=== PATIENT | male | born 1970 | race Caucasian/White ===

== ENCOUNTER 2019-08-05 11:49 | Emergency (ER) | payer OTHER, SELFPAY ==
[2019-08-05 12:04] VITALS: BP 125/68; PULSE 87; RESP 16; TEMP 36.9; O2SAT 98
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
[2019-08-05] MEDS: KETOROLAC (*BKC) 60 MG/2 ML VIAL IM (12:16)
[2019-08-05] MEDS: TETANUS,DIPHTHERIA,AC PERTUSSIS ADULT 0.5 ML (ADACEL) IM (12:21)
[2019-08-05 12:23] VITALS: RESP 17
== END 2019-08-05 12:23 | disposition home or self-care (01) ==
PROVIDERS: Emergency Provider Emergency Medicine
DX: T21.02XA Burn of unspecified degree of abdominal wall, initial encounter (principal); X10.2XXA Contact with fats and cooking oils, initial encounter
CPT/HCPCS: 16020; 90471; 90715; 96372; 99283; A9270; J1885

== ENCOUNTER 2019-09-24 14:32 | Emergency (ER) | payer OTHER, SELFPAY ==
--- NOTE | ~2019-09-24 | XR_ITS ---
EXAMINATION: XR chest 2V DATE: 09/24/2019 15:10 INDICATION: Cough TECHNIQUE: PA and lateral views of the chest are obtained. COMPARISON: 06/12/2019 FINDINGS: The lungs are free of acute opacities. There is no pleural effusion or pneumothorax. The ca rdiomediastinal silhouette is normal. The visualized bones and soft tissues are unremarkable. IMPRESSION: 1. No acute cardiopulmonary abnormality. Reviewed, dictated and finalized at location A.
[2019-09-24 14:40] VITALS: BP 146/80; PULSE 90; RESP 20; TEMP 36.7; O2SAT 99
--- NOTE | 2019-09-24 14:46 | ED.URI ---
HPI - URI/Sore Throat General Chief Complaint: Upper Respiratory Infection Stated Complaint: flu like symptoms Source: patient Mode of arrival: ambulatory Limitations: no limitations History of Present Illness HPI Narrative: 48 y.o. with asthma c/o cough, tactile fever and sore throat x 3 days. Recently he has been occasionally coughing up yellow phlegm. C/o burning in chest since onset of symptoms. Denies hx of heartburn. States he was on steroid several months ago. He has a nebulizer at home but does not have the hose. Related Data Home Medications Medication Instructions Recorded Confirmed albuterol sulfate 2 puff INHALATION PRN PRN 06/01/19 09/24/19 Allergies Allergy/AdvReac Type Severity Reaction Status Date / Time Penicillins Allergy Hives Verified 06/01/19 12:19 Review of Systems Constitutional: Constitutional: Reports no additional constitutional complaints Cardiovascular: Cardiovascular: Reports no additional cardiovascular complaints Respiratory: Respiratory: Reports no additional respiratory complaints Gastrointestinal: Comments: denies hx of acidic taste in his mouth or previous problems with heartburn Integumentary/Breasts: Skin/Breast: Denies rash PMFSH Past Medical History Medical History Asthma No active medical problems Surgical History Surgical History H/O colonoscopy History of esophagogastroduodenoscopy (EGD) Family History Family History Father , CHF No problems noted. Mother Cerebrovascular accident Social History Social History Smoking packs per day: 1 Smoking cigarettes per day: 20.0 Years smoked: 30 Smoking pack-years: 30.00 Smoking status: Current every day smoker Tobacco type: cigarettes and e-cigarettes Substance use: former Substance use type: amphetamines Gender identity (if verbalized by the patient): Male Exam Const: General: cooperative and alert Nutritional Appearance: average body habitus Limitations: no limitations HENMT: Face and sinus: sinuses nontender Mouth: Yes moist mucous membranes Throat: posterior oropharynx normal Neck: Neck: no lymphadenopathy Chest: Chest palpation & inspection: normal inspection of the chest Resp: Effort & Inspection: normal respiratory effort Auscultation: crackles (left base ) and wheezes inspiratory wheezes and throughout Cardio: Rate: regular rate Rhythm: regular rhythm Heart sounds: no murmurs Course Course Emergency Course: Improvement of dyspnea after duoneb treatment. Vital Signs Vital signs: Vital Signs Temperature 36.7 C 09/24/19 14:40 Pulse Rate 90 09/24/19 14:40 Respiratory Rate 20 09/24/19 14:40 Blood Pressure 146/80 H 09/24/19 14:40 Pulse Oximetry 99 09/24/19 14:40 Temperature 36.7 C 09/24/19 14:40 Pulse Rate 90 09/24/19 15:34 Respiratory Rate 20 09/24/19 15:34 Blood Pressure 146/80 H 09/24/19 14:40 Pulse Oximetry 99 09/24/19 14:40 MDM - URI/Sore Throat Differential Diagnosis Differential diagnosis: Likely upper respiratory infection, bronchitis and other (pneumonia) Medical Records Attestation: I reviewed the patient's medical records. Medical records narrative: Dx. with bronchitis 3 months ago. Steroids not used. Lab Data Attestation: I reviewed the patient's lab results. Lab results narrative: Negative Strep A, Influenza A and B. Labs: Lab Results 09/24/19 Range/Units 14:46 Influenza Type A Ag Negative (Negative) Influenza Type B Ag Negative (Negative) Grp A Beta Strep Ag Negative Imaging Data My impression: No acute abnormalities Radiologist's impression: IMPRESSION: 1. No acute cardiopulmonary abnormality. Discharge Plan Discharge Clinical Impression: Bronchitis URI (
[2019-09-24 15:13] LABS: Influenza Control Valid (Valid)
[2019-09-24] MEDS: predniSONE 20 MG TABLET 60 MG PO (15:16)
[2019-09-24] MEDS: IPRATROPIUM 0.5 MG/ALBUTEROL SULFATE 2.5 MG AMPUL.NEB 3 ML INHALATION (15:18)
[2019-09-24 15:22] VITALS: PULSE 90; RESP 20
[2019-09-24 15:34] VITALS: PULSE 90; RESP 20
[2019-09-24 15:45] VITALS: BP 126/82; PULSE 86; RESP 20; O2SAT 99
== END 2019-09-24 15:46 | disposition home or self-care (01) ==
PROVIDERS: Emergency Provider Family Medicine
DX: J40 Bronchitis, not specified as acute or chronic (principal); J06.9 Acute upper respiratory infection, unspecified; F17.210 Nicotine dependence, cigarettes, uncomplicated
CPT/HCPCS: 71046; 87081; 87804; 87880; 94640; 99283; A9270; J7512

== ENCOUNTER 2020-01-09 18:42 | Emergency (ER) | payer OTHER, SELFPAY ==
--- NOTE | 2020-01-09 18:55 | ED.BACK ---
HPI - Back Pain/Injury General Chief Complaint: Back Pain/Injury Stated Complaint: back pain Time Seen by Provider: 01/09/20 18:55 Source: patient and RN notes reviewed Mode of arrival: ambulatory Limitations: no limitations History of Present Illness MD elicited complaint: back pain and other Pertinent past history: prior back pain Onset (ago): day(s) (4-5 days ) Severity: moderate Pain scale (0-10): 10 Quality: dull Location: lumbar spine and sacrum Radiation: none Exacerbating factors: movement Relieving factors: none Context: while lifting and bending Associated symptoms: denies other symptoms and increased urinary frequency Treatments prior to arrival: NSAIDS Work related injury: No Related Data Home Medications Medication Instructions Recorded Confirmed albuterol sulfate 2 puff INHALATION PRN PRN 06/01/19 01/09/20 Allergies Allergy/AdvReac Type Severity Reaction Status Date / Time Penicillins Allergy Hives Verified 06/01/19 12:19 Review of Systems Review of Systems: All systems reviewed & are unremarkable except as noted in HPI and below Constitutional: Constitutional: Reports as per HPI and Reports no additional constitutional complaints Cardiovascular: Cardiovascular: Reports as per HPI and Reports no additional cardiovascular complaints Respiratory: Respiratory: Reports as per HPI and Reports no additional respiratory complaints Gastrointestinal: Gastrointestinal: Reports as per HPI and Reports no additional gastrointestinal complaints Genitourinary: Genitourinary: Reports no additional male genitourinary complaints and Denies urinary incontinence Musculoskeletal: Musculoskeletal: Reports no additional musculoskeletal complaints Integumentary/Breasts: Skin/Breast: Reports system reviewed and no additional complaints, except as docu Neurologic: Reports system reviewed and no additional complaints, except as documented Psychiatric: Psychiatric: Reports no additional psychiatric complaints Endocrine: Endocrine: Reports no additional endocrine complaints Hematologic/Lymphatic: Hematologic/Lymphatic: Reports no additional hematologic/lymphatic complaints Allergic/Immunologic: Allergic/Immunologic: Reports no additional allergic/immunologic complaints PMFSH Past Medical History Medical History (Updated 01/09/20 @ 19:25 by Kristina Hernandez MD) Asthma No active medical problems No acute medical problems Surgical History Surgical History (Updated 01/09/20 @ 19:05 by Kristina Hernandez MD) H/O colonoscopy History of esophagogastroduodenoscopy (EGD) No significant past surgical history Social History Social History Smoking packs per day: 1 Smoking cigarettes per day: 20.0 Years smoked: 30 Smoking pack-years: 30.00 Smoking status: Current every day smoker Tobacco type: cigarettes and e-cigarettes/vaping Substance use: former Substance use type: amphetamines Gender identity (if verbalized by the patient): Male Exam Const: General: healthy appearing, no acute distress and alert; No ill appearing Nutritional Appearance: well nourished and obese Orientation/consciousness: patient oriented x3 Limitations: No no limitations and No physical limitations HENMT: Head: normal to inspection Eyes: Conjunctivae: conjunctivae normal Pupils: Equal, round and reactive pupils present EOM: EOMs intact bilaterally Neck: Neck: normal visual inspection Chest: Chest palpation & inspection: normal inspection of the chest Resp: Effort & Inspection: normal respiratory effort, no retractions and no use of accessory muscles Auscultation: clear to auscultation bilaterally Cardio: Rate: regular rate Rhythm: regular rhythm GI: Auscultation: normal bowel sounds Other: Soft and nontender : Other: Deferred Back/Spine/Pelvis: Back: no CVA tenderness Skin: General skin exam: normal color Rashes: no rashes Neuro: General: patient
[2020-01-09 19:05] VITALS: BP 145/84; PULSE 90; RESP 14; TEMP 36.7; O2SAT 97
[2020-01-09] MEDS: KETOROLAC (*BKC) 60 MG/2 ML VIAL IM (19:10)
[2020-01-09 19:13] LABS: Add Urine Microscopic? NO; Appearance Urine Clear (Clear); Bilirubin Urine Negative (Negative); Blood Urine Negative (Negative); Color Urine Yellow (Yellow); Glucose Urine UA Negative (Negative); Ketones Urine Negative (Negative); Leukocyte Esterase Ur Negative (Negative); Nitrate Urine Negative (Negative); Protein Urine Negative (Negative); Specific Grav Ur 1.025 (1.010-1.020); Urobilinogen Urine 0.2 mg/dL (0.2-1.0)
[2020-01-09 19:25] VITALS: BP 123/75; PULSE 90; RESP 16
== END 2020-01-09 19:33 | disposition home or self-care (01) ==
PROVIDERS: Emergency Provider Emergency Medicine
DX: S39.012A Strain of muscle, fascia and tendon of lower back, initial encounter (principal); X50.9XXA Other and unspecified overexertion or strenuous movements or postures, initial encounter
CPT/HCPCS: 81003; 96372; 99283; J1885

== ENCOUNTER 2020-02-19 20:29 | Emergency (ER) | payer OTHER, SELFPAY ==
--- NOTE | ~2020-02-19 | XR_ITS ---
EXAMINATION: XR chest 2V EXAM DATE: 02/19/2020 21:14 INDICATION: Shortness of breath and cough. TECHNIQUE: Frontal and lateral projections of the chest obtained and reviewed. Comparison is made to prior examination from 09/24/2019. FINDINGS: The lungs are clear. There are no pleural effusions. The cardiomediastinal silhouette is within normal limits. There is no pneumothorax suspected. The bones and soft tissues are unremarkab le. IMPRESSION: No acute cardiopulmonary findings. Reviewed, dictated and finalized at location A.
[2020-02-19 20:38] VITALS: BP 139/82; PULSE 91; RESP 18; TEMP 36.4; O2SAT 97
[2020-02-19] MEDS: methylPREDNISolone ACETATE 40 MG/ML VIAL 80 MG IM (20:49)
[2020-02-19] MEDS: IPRATROPIUM 0.5 MG/ALBUTEROL SULFATE 2.5 MG AMPUL.NEB 3 ML INHALATION (20:55)
[2020-02-19 20:56] VITALS: PULSE 87; RESP 16
[2020-02-19 20:56] LABS: Hematocrit 38.3 % (40.0-54.0); Hemoglobin 13.2 g/dL (14.0-18.0); Mean Corpuscular HGB Conc 34.5 g/dL (32.0-36.0); Mean Corpuscular Hemoglobin 32.2 pg (27.0-31.0); Mean Corpuscular Volume 93.4 fL (78.0-102.0); Mean Platelet Volume 10.2 fl (8.7-11.0); Platelet Count Result 238 K/mm3 (150-420); Red Cell Distribution Width 13.1 % (11.6-14.4); White Blood Count 7.3 K/mm3 (4.8-10.8)
[2020-02-19 21:00] VITALS: PULSE 93; RESP 16
[2020-02-19 21:11] LABS: Alanine Aminotransferase 35 U/L (16-63); Albumin Level 3.2 g/dL (3.4-5.0); Alkaline Phosphatase 66 U/L (46-116); Anion Gap 6 mmol/L (8-16); Aspartate Amino Transferase 20 U/L (15-37); Bilirubin,Total 0.4 mg/dL (0.00-1.00); Blood Urea Nitrogen 16 mg/dL (7-18); Calcium 8.2 mg/dL (8.5-10.1); Carbon Dioxide 28 mmol/L (21-32); Chloride 106 mmol/L (98-108); Estimated CRCL calculation 89 ml/min; Estimated Glomerular Filt Rate > 60; Glucose 123 mg/dL (70-99); Osmolality Calculated 292 mOsm/kg (285-295); Potassium 3.6 mmol/L (3.5-5.1); Sodium 140 mmol/L (136-145); Total Protein 6.5 g/dL (6.4-8.2)
--- NOTE | 2020-02-19 21:17 | ED.SOB ---
HPI - SOB/Dyspnea General Chief Complaint: Shortness of Breath/Dyspnea Stated Complaint: trouble breathing Source: patient Mode of arrival: ambulatory Limitations: no limitations History of Present Illness HPI Narrative: Is a 49-year-old male presents with some increased shortness of breath over the last day or 2 with a cough that is nonproductive with currently history of asthma and tobacco abuse. Cough is nonproductive with no fever chills no chest pain or chest tightness no audible wheezing no nausea vomiting or abdominal pain. Patient has inhalers at home that he use with some minimal relief. MD elicited complaint: shortness of breath and cough Pertinent past history: asthma Onset (ago): day(s) Timing: intermittent Severity: mild Exacerbating factors: exertion, coughing and warm air Relieving factors: bronchodilators Known history of: asthma Associated symptoms: cough Related Data Home Medications Medication Instructions Recorded Confirmed albuterol sulfate 2 puff INHALATION PRN PRN 06/01/19 02/19/20 Allergies Allergy/AdvReac Type Severity Reaction Status Date / Time Penicillins Allergy Hives Verified 06/01/19 12:19 Review of Systems Review of Systems: All systems reviewed & are unremarkable except as noted in HPI and below PMFSH Past Medical History Medical History Asthma No active medical problems No acute medical problems Surgical History Surgical History H/O colonoscopy History of esophagogastroduodenoscopy (EGD) No significant past surgical history Family History Family History Father , CHF No problems noted. Mother Cerebrovascular accident Social History Social History Smoking packs per day: 1 Smoking cigarettes per day: 20.0 Years smoked: 30 Smoking pack-years: 30.00 Smoking status: Current every day smoker Tobacco type: cigarettes and e-cigarettes/vaping Substance use: former Substance use type: amphetamines Gender identity (if verbalized by the patient): Male Exam Const: General: no acute distress and alert Nutritional Appearance: well nourished Orientation/consciousness: patient oriented x3 HENMT: Head: normal to inspection Eyes: Conjunctivae: conjunctivae normal Pupils: Equal, round and reactive pupils present EOM: EOMs intact bilaterally Resp: Effort & Inspection: normal respiratory effort Auscultation: clear to auscultation bilaterally Cardio: Rate: regular rate Rhythm: regular rhythm GI: GI Palp: Yes Soft to palpation Percussion: Yes normal to percussion : General: Yes no CVA tenderness Male General Exam: Yes normal external exam Urinary Catheter: Urinary Catheter: patent and draining Skin: General skin exam: normal color Rashes: no rashes Neuro: General: patient oriented x3, moves all extremities and no meningeal signs Extrem: General: normal to inspection Psych: Mental Status: mental status grossly normal Affect: normal affect Attitude: cooperative Course Course Emergency Course: Reassessment of patient patient symptoms have improved with DuoNebs and a dose of Depo-Medrol. Vital Signs Vital signs: Vital Signs Temperature 36.4 C L 02/19/20 20:38 Pulse Rate 91 02/19/20 20:38 Respiratory Rate 18 02/19/20 20:38 Blood Pressure 139/82 02/19/20 20:38 Pulse Oximetry 97 02/19/20 20:38 Temperature 36.4 C L 02/19/20 20:38 Pulse Rate 93 02/19/20 21:00 Respiratory Rate 16 02/19/20 21:00 Blood Pressure 139/82 02/19/20 20:38 Pulse Oximetry 97 02/19/20 20:38 MDM - SOB/Dyspnea Lab Data Result diagrams: 02/19/20 20:52 02/19/20 20:52 Labs: Lab Results 02/19/20 02/19/20 Range/Units 20:52 20:52 WBC 7.3 (4.8-10.8) K/mm3 RBC
--- NOTE | 2020-02-19 21:22 | PC.NURSE ---
Pt to desk asking for doctors note for missing work this evening.
[2020-02-19 21:29] VITALS: BP 125/96; PULSE 90; RESP 18; O2SAT 95
== END 2020-02-19 21:30 | disposition home or self-care (01) ==
PROVIDERS: Emergency Provider Emergency Medicine
DX: J45.909 Unspecified asthma, uncomplicated (principal)
CPT/HCPCS: 36415; 71046; 80053; 85027; 94640; 96372; 99283; J1030